=== PATIENT | female | born 1990 | race Two or more races ===

== ENCOUNTER 2024-11-22 17:29 | Emergency (ER) | payer OTHER ==
[~2024-11-22] VITALS: Ht 160 cm; Wt 55.8 kg
[2024-11-22 19:42] LABS: BASO % 0.2 % (0.1-1.2); EOS # 0.36 (0.04-0.54); EOS % 3.5 % (0.7-7.0); HEMATOCRIT 35.7 % (34.1-44.9); HEMOGLOBIN 11.6 g/dL (11.2-15.7); LYMPH # 2.47 (1.18-3.74); LYMPH % 23.9 % (19.3-53.1); MEAN CORPUSCULAR HEMOGLOBIN 24.6 pg (25.6-32.2); MONO % 7.7 % (4.7-12.5); NEUT # 6.64 (1.56-6.13); NEUT % 64.2 % (34.0-71.1); PLATELET COUNT 274 K/uL (163-369); RED BLOOD COUNT 4.72 M/uL (3.93-5.22); RED CELL DISTRIBUTION WIDTH 14.7 % (11.6-14.4)
[2024-11-22 20:20] LABS: URINE APPEARANCE Clear; URINE BILIRRUBIN Negative (NEGATIVE); URINE BLOOD Small; URINE COLOR Yellow; URINE GLUCOSE Negative (NEGATIVE); URINE KETONE Negative (NEGATIVE); URINE LEUKOCYTE Negative; URINE NITRATE Negative; URINE PROTEIN Negative (NEGATIVE); URINE UROBILINOGEN 0.2 E.U./dl
[2024-11-22 20:26] LABS: URINE BACTERIA 384.2 uL (0.0-1933); URINE EPITHELIAL CELLS 9.8 uL (0.0-38.8); URINE RBC 19.7 uL (0.0-20.8); URINE WBC 7.5 uL (0.0-23.2)
[2024-11-22 20:28] LABS: CALCIUM 8.9 mg/dL (8.5-10.1); CREATININE SERUM 0.62 mg/dL (0.55-1.02); GFR 111.55; POTASSIUM 3.54 mEq/L (3.5-5.1)
[2024-11-23] MEDS ORDERED: FAMOTIDINE/PF 20 MG/2 ML VIAL ONE (00:55)
[2024-11-23] MEDS ORDERED: FAMOTIDINE/PF 20 MG/2 ML VIAL IV PUSH ONE (01:00)
== END 2024-11-23 01:07 | disposition home or self-care (01) ==
LOC: ER 17:40
PROVIDERS: Emergency Medicine
DX: O26.891 Other specified pregnancy related conditions, first trimester (principal); Z3A.08 8 weeks gestation of pregnancy